=== PATIENT | male | born 1975 | race Caucasian/White ===

== ENCOUNTER 2021-02-19 19:52 | Emergency (ER) | payer BC, SELFPAY ==
[2021-02-19 19:55] VITALS: PULSE 79; RESP 18; TEMP 36.7; O2SAT 96; BMI 31.1
[2021-02-19 20:04] VITALS: BP 142/88
--- NOTE | 2021-02-19 20:09 | W.ED.SKABFB ---
HPI - Skin/Abscess/Foreign Bdy General: Chief complaint: Skin/Abscess/Foreign Body Stated complaint: Fishing Hook stuck in Left Calk Time Seen by Provider: 02/19/21 20:09 History of Present Illness: HPI narrative: 46-year-old male patient comes in today with a fishing lower embedded in his left calf. Patient reports his tetanus shot is up-to-date. Patient denies any routine medications. Patient appears well. Patient appears in mild to no pain. Review of Systems General: Reports: 10 or more systems reviewed and unremarkable except in HPI and below Skin/Breast: Reports: other (Pooler in left lower leg) Physical Exam Const: COMMON NORMALS: no acute distress and patient oriented x3 GENERAL APPEARANCE: cooperative HENMT: COMMON NORMALS: normocephalic and Normal external nose present HEAD & SCALP: normal to inspection and normocephalic NOSE: Normal external nose present MOUTH: Normal oral and palatal mucosa present Neck/C-Spine: COMMON NORMALS: full ROM Chest: COMMONS NORMALS: normal inspection of the chest Resp: COMMON NORMALS: normal respiratory effort EFFORT & INSPECTION: Yes able to speak in complete sentences Cardio: COMMON NORMALS: regular rate and regular rhythm RATE: regular rate RHYTHM: regular rhythm GI: COMMON NORMALS: non-tender Extremity: COMMON NORMALS: normal to inspection Neuro: COMMON NORMALS: patient oriented x3 and moves all extremities Psych: COMMON NORMALS: mental status grossly normal and cooperative Skin: NARRATIVE SKIN EXAM: Left lower medial calf there is a fishing lower with 2 barbs embedded into the skin. Patient appears well. No signs of significant ecchymosis or swelling. Procedures Foreign Body Removal Site: left and lower extremity Description of foreign body: fish hook Sedation/Analgesia: other (Lidocaine 1% with epinephrine) Technique: removal with forceps and incision made to facilitate removal Confirmed by:: direct visualization Complications: none Post-procedure exam: awake, alert Neurovascular: normal capillary fill, distal light touch sensation intact and distal motor function normal Course Vital Signs: Vital signs: Vital Signs Temperature 98.1 F 02/19/21 19:55 Pulse Rate 79 02/19/21 19:55 Respiratory Rate 18 02/19/21 19:55 Blood Pressure 142/88 02/19/21 20:04 Pulse Oximetry 96 02/19/21 19:55 MDM - Skin/Abscess/Foreign Bdy MDM Narrative: Medical decision making narrative: Patient comes in today with complaints of fishhook to the left lower extremity. On exam patient has a fishing letter with 2 barbs embedded into the skin of the left lower leg. Differential diagnosis includes foreign body, need for prophylaxis tetanus, need for prophylaxis antibiotic. Patient mother fishhooks were removed with small incisions and forceps. Patient tolerated well. Tetanus was up-to-date. Reviewed post procedure care and monitoring with the patient who reported understanding and agreed to plan. Discharge Plan Discharge Patient Disposition: Home Clinical Impression: Fish hook injury of lower leg Qualifiers: Encounter type: initial encounter Laterality: left Qualified Code(s): S89.92XA - Unspecified injury of left lower leg, initial encounter Condition: Stable Prescriptions: No Action No Known Home Medications RF: 0 Discharge Orders: Discharge ED (Routine); Ordered 02/19/21 Ordered By: Matty Farmer Discharge Diet: Usual diet Discharge Activity: Increase activity as tolerated Patient Instructions: Opioid Safety, Wound Care (General) Activity Restrictions/Additional Instructions: Keep wound clean and dry as much as possible. Monitor site for signs of infection. If you see increased redness, fever in the wound, or purulent drainage you may need to be started on some antibiotic. Follow-up with primary care as needed. Return to the ER for worsening symptoms or new concerns. Coding Level of Care Code ED Screen Writer for Yasmayn Pretty
== END 2021-02-19 20:35 | disposition home or self-care (01) ==
PROVIDERS: Emergency Provider Nurse Practitioner Family
DX: S81.842A Puncture wound with foreign body, left lower leg, initial encounter (principal); W26.8XXA Contact with other sharp object(s), not elsewhere classified, initial encounter
CPT/HCPCS: 10120; 99282